=== PATIENT | male | born 1960 | race Caucasian/White ===

== ENCOUNTER 2018-12-20 14:36 | Emergency (ER) | payer MEDICARE, OTHER ==
[2018-12-20] MEDS: LIDOCAINE 1% (MPF) 5 ML VIAL INFIL (17:13)
[2018-12-20] MEDS: CLINDAMYCIN 300 MG INJ IM (17:27)
[2018-12-20] MEDS: MUPIROCIN 2% 22 GM OINT TOP (17:27)
== END 2018-12-20 18:26 | disposition home or self-care (01) ==
LOC: FTE 14:36
DX: L02.212 Cutaneous abscess of back [any part, except buttock and flank] (principal); I10 Essential (primary) hypertension; I25.10 Atherosclerotic heart disease of native coronary artery without angina pectoris; E11.9 Type 2 diabetes mellitus without complications; J44.9 Chronic obstructive pulmonary disease, unspecified; Z79.4 Long term (current) use of insulin; Z98.61 Coronary angioplasty status; Z79.82 Long term (current) use of aspirin
CPT/HCPCS: 10060; 82962; 96372; 99284-25

== ENCOUNTER 2019-02-26 15:24 | Emergency (ER) | payer MEDICARE, OTHER ==
[2019-02-26] MEDS: ONDANSETRON (ODT) 4 MG TAB ODT (16:38)
[2019-02-26] MEDS: morphine 4 MG/ML VIAL IM (16:38)
== END 2019-02-26 19:08 | disposition home or self-care (01) ==
LOC: FTE 15:24
DX: M54.6 Pain in thoracic spine (principal); I10 Essential (primary) hypertension; I25.10 Atherosclerotic heart disease of native coronary artery without angina pectoris; J44.9 Chronic obstructive pulmonary disease, unspecified; E11.9 Type 2 diabetes mellitus without complications; Z79.4 Long term (current) use of insulin; Z79.82 Long term (current) use of aspirin; Z98.61 Coronary angioplasty status
CPT/HCPCS: 71046; 72072; 72100; 96372; 99284-25